=== PATIENT | female | born 1975 | race African-American/Black ===

== ENCOUNTER 2016-12-22 04:25 | Emergency (ER) | payer OTHER ==
[2016-12-22 04:39] VITALS: BP 161/103
== END 2016-12-22 06:35 | disposition home or self-care (01) ==
LOC: ED 04:25
DX: E11.9 Type 2 diabetes mellitus without complications (principal); K29.70 Gastritis, unspecified, without bleeding; I10 Essential (primary) hypertension; M79.7 Fibromyalgia; M06.9 Rheumatoid arthritis, unspecified; M62.830 Muscle spasm of back; Z88.1 Allergy status to other antibiotic agents; Z88.2 Allergy status to sulfonamides
CPT/HCPCS: 82962

== ENCOUNTER 2017-05-14 19:48 | Emergency (ER) | payer OTHER ==
[~2017-05-14] VITALS: Ht 172.7 cm; Wt 171.6 kg
[2017-05-14 19:56] VITALS: Ht 172.7 cm; Wt 171.6 kg
[2017-05-14 21:04] LABS: BASOPHIL % 0.4 % (0-2)
[2017-05-14 21:07] LABS: PLATELET COUNT 418 x10^3mcL (130-400); RED CELL DISTRIBUTION WIDTH 16.1 % (11.5-14.5)
[2017-05-14 21:08] LABS: AMPHETAMINE QUAL UR NONE DETECTED (NEG <=1000)
[2017-05-14 21:12] LABS: CALCIUM 8.9 mg/dL (8.5-10.1); CARBON DIOXIDE 29.4 mmol/L (21-32); CHLORIDE SERUM 106 mmol/L (98-107); GFR1 > 60 mL/min; GLUCOSE SERUM 91 mg/dL (74-106); POTASSIUM SERUM 4.1 mmol/L (3.5-5.1); SODIUM SERUM 145 mmol/L (136-145)
[2017-05-14 21:39] VITALS: BP 153/81
== END 2017-05-14 21:39 | disposition home or self-care (01) ==
LOC: ED 19:48
PROVIDERS: Emergency Medicine
DX: R07.89 Other chest pain (principal); I10 Essential (primary) hypertension; M79.7 Fibromyalgia; G89.29 Other chronic pain; M54.9 Dorsalgia, unspecified; Z88.1 Allergy status to other antibiotic agents
CPT/HCPCS: 36415; J1885; Q0092

== ENCOUNTER 2017-07-15 21:56 | Inpatient (IN) | payer OTHER ==
[~2017-07-15] VITALS: Ht 172.7 cm; Wt 165.1 kg
[2017-07-15 21:59] VITALS: Ht 172.7 cm; Wt 165.1 kg
[2017-07-15 22:58] LABS: PLATELET COUNT 410 x10^3mcL (130-400); RED CELL DISTRIBUTION WIDTH 16.9 % (11.5-14.5)
[2017-07-15 23:03] LABS: CALCIUM 8.6 mg/dL (8.5-10.1); CARBON DIOXIDE 27.8 mmol/L (21-32); CHLORIDE SERUM 102 mmol/L (98-107); CREATININE SERUM 0.9 mg/dL (0.6-1.0); GFR1 > 60 mL/min; GLUCOSE SERUM 145 mg/dL (74-106); POTASSIUM SERUM 3.9 mmol/L (3.5-5.1); SODIUM SERUM 135 mmol/L (136-145)
[2017-07-15 23:07] LABS: ALBUMIN 3.3 g/dL (3.4-5.0); ALKALINE PHOSPHATASE 87 U/L (46-116); ALT/SGPT 35 U/L (14-59); AST/SGOT 27 U/L (15-37); BILIRUBIN TOTAL 0.7 mg/dL (0.20-1.00); TOTAL PROTEIN, SERUM 7.6 g/dL (6.4-8.2)
[2017-07-16] MEDS ORDERED: HCTZ/TRIAMTEREN1 CA1 (00:10)
[2017-07-16] MEDS ORDERED: IBUPROFEN400 MG (00:11)
[2017-07-16] MEDS ORDERED: NORCO 10-325 T1 EACH (00:11)
[2017-07-16] MEDS ORDERED: METFORMIN500 M1 (00:11)
[2017-07-16] MEDS ORDERED: TIZANIDINE HCL4 MG (00:12)
[2017-07-16 01:01] LABS: CHOLESTEROL/HDL RATIO 3.7; MAGNESIUM 1.9 mg/dL (1.8-2.4); PHOSPHOROUS 3.5 mg/dL (2.5-4.9)
[2017-07-16 01:11] LABS: FREE T4 1.12 ng/dL (0.76-1.46); FREE THYROXINE INDEX 3.7 ug/dL (1.4-4.5); T4(THYROXINE) 10.8 ug/dL (4.7-13.3)
[2017-07-16 01:17] VITALS: BP 156/67
[2017-07-16 02:57] LABS: T3 TOTAL 1.14 ng/mL
[2017-07-16 05:24] VITALS: BP 114/61
[2017-07-16 06:33] LABS: microscopic required? NO
[2017-07-16 06:38] LABS: CALCIUM 8.6 mg/dL (8.5-10.1); CARBON DIOXIDE 30.9 mmol/L (21-32); CREATININE SERUM 1.1 mg/dL (0.6-1.0); POTASSIUM SERUM 3.5 mmol/L (3.5-5.1)
[2017-07-16 07:05] LABS: BASOPHIL % 0.4 % (0-2)
[2017-07-16 07:22] LABS: RED CELL DISTRIBUTION WIDTH 16.6 % (11.5-14.5)
[2017-07-16 07:23] LABS: PLATELET COUNT 418 x10^3mcL (130-400); RED BLOOD CELLS 4.37 M/mm3 (4.10-5.10)
[2017-07-16 07:46] LABS: UA SPECIFIC GRAVITY 1.015 (1.005-1.035); urine erythrocyte NEGATIVE (NEGATIVE)
[2017-07-16 07:52] LABS: TOTAL IRON BINDING CAPACITY 400 ug/dL (250-450)
[2017-07-16 07:53] LABS: IRON 33 ug/dL (50-170)
[2017-07-16 08:30] LABS: AMPHETAMINE QUAL UR NONE DETECTED (NEG <=1000)
[2017-07-16 08:48] VITALS: BP 113/53
[2017-07-16 12:53] VITALS: BP 116/72
[2017-07-16 16:41] VITALS: BP 122/57
[2017-07-16 20:53] VITALS: BP 130/41
[2017-07-17 05:29] VITALS: BP 134/61
[2017-07-17 06:37] LABS: BASOPHIL % 0.6 % (0-2); CALCIUM 8.6 mg/dL (8.5-10.1); CARBON DIOXIDE 29.1 mmol/L (21-32); CHLORIDE SERUM 103 mmol/L (98-107); CREATININE SERUM 0.9 mg/dL (0.6-1.0); GFR1 > 60 mL/min; GLUCOSE SERUM 143 mg/dL (74-106); PLATELET COUNT 371 x10^3mcL (130-400); SODIUM SERUM 140 mmol/L (136-145)
[2017-07-17 07:14] LABS: RED CELL DISTRIBUTION WIDTH 16.9 % (11.5-14.5); rbc morphology (normal/abnorm) ABNORMAL (NORMAL)
[2017-07-17 08:51] VITALS: BP 147/70
[2017-07-17] MEDS ORDERED: GOOD SENSE OMEP20 MG PO (09:25)
[2017-07-17] MEDS ORDERED: FERG PO (09:25)
[2017-07-17 10:31] VITALS: BP 147/70
== END 2017-07-17 12:57 | disposition home or self-care (01) | DRG 392 ==
LOC: ED 21:56 → DU 07-16 00:26
PROVIDERS: Emergency Medicine; Family Medicine
DX: K21.9 Gastro-esophageal reflux disease without esophagitis (principal); Z68.43 Body mass index [BMI] 50.0-59.9, adult; E11.65 Type 2 diabetes mellitus with hyperglycemia; I10 Essential (primary) hypertension; E66.01 Morbid (severe) obesity due to excess calories; Z88.8 Allergy status to other drugs, medicaments and biological substances; M06.9 Rheumatoid arthritis, unspecified; I25.10 Atherosclerotic heart disease of native coronary artery without angina pectoris; E88.81 Metabolic syndrome and other insulin resistance; M79.7 Fibromyalgia; D64.9 Anemia, unspecified
CPT/HCPCS: 82962; 83880; 84439; J1815; J1885; J2405; J7030; Q0092

== ENCOUNTER 2018-02-01 04:07 | Emergency (ER) | payer OTHER ==
[~2018-02-01] VITALS: Ht 172.7 cm; Wt 182.3 kg
[~2018-02-01 04:07] MED LIST: FERG PO; GOOD SENSE OMEP20 MG PO; HCTZ/TRIAMTEREN1 CA1; IBUPROFEN400 MG; METFORMIN500 M1; NORCO 10-325 T1 EACH; TIZANIDINE HCL4 MG
[2018-02-01 04:16] VITALS: Ht 172.7 cm; Wt 182.3 kg
[2018-02-01 05:58] VITALS: BP 175/112
== END 2018-02-01 05:58 | disposition home or self-care (01) ==
LOC: ED 04:07
DX: J45.901 Unspecified asthma with (acute) exacerbation (principal); M54.6 Pain in thoracic spine; R07.89 Other chest pain; I10 Essential (primary) hypertension; E11.9 Type 2 diabetes mellitus without complications; M79.7 Fibromyalgia; Z88.1 Allergy status to other antibiotic agents; Z88.2 Allergy status to sulfonamides
CPT/HCPCS: J1885; J7512; J7620; Q0092

== ENCOUNTER 2018-03-30 01:45 | Emergency (ER) | payer OTHER ==
[~2018-03-30] VITALS: Ht 172.7 cm; Wt 175.5 kg
[2018-03-30 02:21] VITALS: Ht 172.7 cm; Wt 175.5 kg
[2018-03-30 04:01] VITALS: BP 168/98
== END 2018-03-30 04:05 | disposition home or self-care (01) ==
LOC: ED 01:45
DX: M75.92 Shoulder lesion, unspecified, left shoulder (principal); I10 Essential (primary) hypertension; E11.9 Type 2 diabetes mellitus without complications; M79.7 Fibromyalgia; M06.9 Rheumatoid arthritis, unspecified; Z88.0 Allergy status to penicillin; Z88.1 Allergy status to other antibiotic agents; Z88.2 Allergy status to sulfonamides
CPT/HCPCS: J1885; J2270

== ENCOUNTER 2018-11-19 23:16 | Emergency (ER) | payer OTHER ==
[~2018-11-19] VITALS: Ht 172.7 cm; Wt 163.3 kg
[2018-11-19 23:20] VITALS: Ht 172.7 cm; Wt 163.3 kg
[2018-11-20 00:09] LABS: BASOPHIL % 0.3 % (0-2); PLATELET COUNT 391 x10^3mcL (130-400)
[2018-11-20 00:10] LABS: RED CELL DISTRIBUTION WIDTH 16.7 % (11.5-14.5)
[2018-11-20 00:29] LABS: CALCIUM 8.4 mg/dL (8.5-10.1); CARBON DIOXIDE 28.7 mmol/L (21-32); CHLORIDE SERUM 103 mmol/L (98-107); GFR1 > 60 mL/min; GLUCOSE SERUM 89 mg/dL (74-106); POTASSIUM SERUM 3.9 mmol/L (3.5-5.1); SODIUM SERUM 140 mmol/L (136-145)
[2018-11-20 00:33] LABS: ALKALINE PHOSPHATASE 91 U/L (46-116); ALT/SGPT 30 U/L (14-59); AST/SGOT 20 U/L (15-37); BILIRUBIN TOTAL 0.5 mg/dL (0.20-1.00); TOTAL PROTEIN, SERUM 7.5 g/dL (6.4-8.2)
[2018-11-20 00:35] LABS: ALBUMIN 3.3 g/dL (3.4-5.0)
[2018-11-20 02:01] VITALS: BP 177/69
== END 2018-11-20 02:01 | disposition home or self-care (01) ==
LOC: ED 23:16
PROVIDERS: Emergency Medicine
DX: D64.9 Anemia, unspecified (principal); R10.31 Right lower quadrant pain; R10.32 Left lower quadrant pain; I10 Essential (primary) hypertension; E11.9 Type 2 diabetes mellitus without complications; M79.7 Fibromyalgia; Z88.0 Allergy status to penicillin; Z88.2 Allergy status to sulfonamides; Z88.1 Allergy status to other antibiotic agents
CPT/HCPCS: 36415; 82962